=== PATIENT | male | born 1975 | race Caucasian/White ===

== ENCOUNTER 2016-09-22 14:07 | Emergency (ER) | payer OTHER ==
[~2016-09-22] VITALS: Ht 177.8 cm; Wt 99.8 kg
[~2016-09-22 14:07] MED LIST: CRESTOR5 MG PO; DEPO-TESTADIOL10 ML IM; GABAPENTIN400 MG PO; HYDROCODONE/ACE1 TA2 PO; JANUVIA 100MG100 MG PO; METFORMIN1000 MG PO
[2016-09-22 14:35] VITALS: BP 133/75
--- NOTE | 2016-09-22 15:41 | ED SKIN/ALLERGY COMPLAINT ---
History of Present Illness General Chief Complaint: Major Burn/Smoke Inhalation Stated Complaint: LFT WRIST BURN AT WORK Source: patient Exam Limitations: no limitations Vital Signs & Intake/Output Vital Signs & Intake/Output Vital Signs Date Time Temp Pulse Resp B/P B/P Pulse O2 O2 Flow FiO2 Mean Ox Delivery Rate 09/22 1435 97.1 90 18 133/75 96 Room Air Room Air Allergies Coded Allergies: diphenhydramine (HYPER 09/22/16) Reconcile Medications Gabapentin 400 MG CAP 3 CAP PO AT BEDTIME NERVE PAIN (Reported) HYDROCODONE/ACETAMINOPHEN (Hydrocodon-Acetaminoph 7.5-325) 1 TAB TAB 1 TAB PO BID PAIN (Reported) METFORMIN HCL (Metformin) 1,000 MG TAB 1 TAB PO BID DIABETES (Reported) Rosuvastatin Calcium (Crestor) 5 MG TAB 1 TAB PO DAILY CHOLESTEROL (Reported) Silver Sulfadiazine (Silvadene) 1 % CREAM..G. 1 RON TOP DAILY burn apply to affected area(s) Sitagliptin Phosphate (Januvia) 100 MG TAB 1 TAB PO DAILY DIABETES (Reported) Testosterone (Depo-Testadiol Inj 2 MG/Ml-50 MG/Ml) 10 ML BALJEET 1 ML IM Q2W UNKNOWN (Reported) Triage Note: TRIAGE: 41 Y/O MALE PRESENTS S/P ENDURING A BURN TO LEFT INNER WRIST. A [place] OF HOT SOUP THAT SPILLED ONTO LEFT WRIST. REDNESS NOTED. NO BLISTERS NOTED. Triage Nurses Notes Reviewed? yes Onset: Just prior to arrival Duration: hour(s): (2) Timing: no prior history Severity: moderate Severity Numbers: 6 Location: extremities Possible Factors: BURN No Modifying Factors: none HPI: Patient is a 41-year-old male presenting to the emergency department with chief complaint of burn to left wrist that happened a few hours prior to arrival. Patient reports that he was at work and soup accidentally spIlled onto his left wrist. He tried running it under cold water. Denies putting anything on it to help. Pain is moderate achy and burning. Worse with palpation. No history of similar symptoms. He reports he is up-to-date with tetanus immunization. Denies any other injuries. (VIDAL ONTIVEROS) Past History Travel History Traveled to [place] past 21 day No Medical History Any Pertinent Medical History? 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 No (VIDAL ONTIVEROS) Review of Systems Review of Systems Constitutional: Reports: no symptoms. Comments Review of systems: See HPI, All other systems negative. Constitutional, no chills fever or weight loss HEENT: No visual changes no sore throat no congestion Cardiovascular: No chest pain ,palpitation Skin, no jaundice no rashes Respiratory: No dyspnea cough sputum or hemoptysis GI: No nausea no vomiting Muscle skeletal: no back pain, no neck pain, Neurologic: No numbness Immunology: No splenectomy or history of AIDS (VIDAL ONTIVEROS) Physical Exam Physical Exam General Appearance: well developed/nourished, no apparent distress, alert, awake , comfortable Comments: Well-developed well-nourished no apparent distress. HEENT: Atraumatic, extraocular motion intact Neck: Normal inspection Back: Nontender Respiratory: No respiratory distress Extremities: No edema, full range of motion, capillary refills intact in upper extremities. Radial pulses are 2+ bilaterally. Full range of motion of upper extremities without difficulty. Skin: Moderate erythema approximately 8-10 cm in diameter noted over the volar aspect of the left wrist. The burn is not circumferential. No blistering noted. Neuro: Alert and oriented x3, motor and sensory intact in upper extremities bilaterally. Psych: Mood affect normal, normal memory normal judgment. (VIDAL ONTIVEROS) Progress Differential Diagnosis: FIRST DEGREE BURN, SECOND-DEGREE BURN, CELLULITIS, ABRASION Plan of Care: Current Medications Sig/Juanito Start time Last Medication Dose Stop Time Status Admin Ketorolac 30 MG ONE ONE 09/22 1545 AC Tromethamine 09/22 1546 (Toradol) Comments: Patient is up-to-date with tetanus. Bacitracin and dressing placed. Likely first-degree burn at this time. He'll follow with occupational medicine. Burn is not circumferential. Pain is controlled. Patient given Toradol here in the emergency department for pain. He'll continue anti-inflammatories at home. (VIDAL ONTIVEROS) Departure Departure Time of Disposition: 1540 Disposition: HOME OR SELF CARE Condition: Stable Clinical Impression Primary Impression: First degree burn of arm Qualifiers: Encounter type: initial encounter Qualified Code: T22.10XA - Burn of first degree of shoulder and upper limb, except wrist and hand, unspecified site, initial encounter Referrals: AYAN OWEN MD (PCP/Family) Additional Instructions: Follow-up with your primary care physician call to make an appointment. He can also follow-up with burn clinic. Use Silvadene as prescribed. Keep clean. Do not pop blisters if they formed. Take ibuprofen [id number] to help with pain. Return for worsening symptoms or concerns. Departure Forms: Customer Survey [employer] Employee Acc General Discharge Information Prescriptions: Current Visit Scripts Silver Sulfadiazine (Silvadene) 1 RON TOP DAILY #50 GM apply to affected area(s) (VIDAL ONTIVEROS) PA/LICENSED CLUB MANAGER Co-Sign Statement Statement: ED Attending supervision documentation- I saw and evaluated the patient. I have also reviewed all the pertinent lab results and diagnostic results. I agree with the findings and the plan of care as documented in the PA's/LICENSED CLUB MANAGER's documentation. x I have reviewed the ED Record and agree with the PA's/LICENSED CLUB MANAGER's documentation. [] Additions or exceptions (if any) to the PAs/LICENSED CLUB MANAGER's note and plan are summarized below: [] (JULIUS SAMAYOA,COLEMAN)
[2016-09-22] MEDS ORDERED: SILVADENE20 GM TOP (15:46)
== END 2016-09-22 16:00 ==
LOC: ERH 14:07
DX: T23.172A Burn of first degree of left wrist, initial encounter (principal); X10.1XXA Contact with hot food, initial encounter; Y93.G3 Activity, cooking and baking; Y92.9 Unspecified place or not applicable
CPT/HCPCS: 96372; J1885